=== PATIENT | female | born 1970 | race Caucasian/White ===

== ENCOUNTER 2017-06-26 06:30 | Day surgery (SDC) | payer SELFPAY ==
[~2017-06-26 06:30] MED LIST: Buffered Lidocaine 0.9% SYRIN* 5 ML/SYR SYRINGE INTRADERM ONE
[2017-06-26] MEDS ORDERED: ceFAZolin 2 GM PREMIX (*) 2 GM/50 ML BAG IVPB ONE (06:39)
[2017-06-26] MEDS ORDERED: Dexamethasone IV* 4 MG/ML 1 ML (4 MG) ONE (06:39)
[2017-06-26] MEDS ORDERED: Bacitracin OPHTH.OINT* 3.5 GM ONE (07:03)
[2017-06-26] MEDS ORDERED: Artificial Tear OPHTH.OINT* 3.5 GM ONE (07:03)
[2017-06-26] MEDS ORDERED: Bupivacaine 0.25% SDV* 30 ML ONE (07:03)
[2017-06-26] MEDS ORDERED: BSS OPTH.SOL* BTL ONE (07:03)
[2017-06-26] MEDS ORDERED: Lidocaine 1% MPF wEPI 200,000* 30 ML SDV ONE (07:04)
[2017-06-26] MEDS ORDERED: Midazolam* 1 MG/ML 2 ML VIAL (2 MG) ONE (07:44)
[2017-06-26] MEDS ORDERED: fentaNYL* 50 MCG/ML 2 ML VIAL (100 MCG VIAL) ONE (07:44)
[2017-06-26] MEDS ORDERED: Propofol* 10 MG/ML 20 ML BTL IV PUSH ONE (08:00)
[2017-06-26] MEDS ORDERED: Naloxone* 0.4 MG/ML 1 ML VIAL IV PRN (08:17)
[2017-06-26] MEDS ORDERED: Ondansetron INJ* 2 MG/ML VIAL IV PRN (08:17)
[2017-06-26 09:31] VITALS: BP 111/83
--- NOTE | 2017-06-28 07:21 | OP ---
CC: Dr. Perez * DATE OF OPERATION: 06/26/17 - [facility] DATE OF : 66 SURGEON: Kelton Frias MD, DMD EMOTIONAL DISABILITIES TEACHER: César Perez MD ANESTHESIOLOGIST: Aminah Kong MD PRE-OP DIAGNOSIS: Desire for bilateral lower lid blepharoplasty. POST-OP DIAGNOSIS: Desire for bilateral lower lid blepharoplasty. OPERATIVE PROCEDURE: Bilateral lower lid blepharoplasty. INDICATIONS FOR PROCEDURE: The patient is a 46-year-old female who has had a desire for cosmetic improvement of lower eyelid region. I discussed with her the full range of treatment options, alternatives, advantages, and disadvantages of each, and potential risks and complications in detail, and she indicates she understands and wishes to proceed. DESCRIPTION OF PROCEDURE: The patient was brought to the operating room suite and placed in the semi-supine position and prepped and draped in the standard fashion for facial cosmetic surgical procedure. [place] protocol time-out procedure was completed. Fine-tip marking pen was used to delineate the area of bilateral lower blepharoplasty incisions. 1% lidocaine with 1:200,000 epinephrine was then infiltrated into the subcutaneous plane of lower eyelid regions bilaterally. Attention was then directed to the right side. Pinch technique was used to excise the thin rim of skin at the incision site and an incision was made down to and through orbicularis at the lateral crease with extension. Incision through the orbicularis with elevation of skin muscle flap was then completed. Identification of redundant fat was made and the septum was carefully opened medially, centrally, and laterally where redundant fat was teased free with Q-tips, cauterized at the base then excised. Skin was re-draped and a small triangle of skin was removed laterally. An anchoring stitch from the periosteum to orbicularis was placed laterally to allow for completely tension free closure and skin closure was then accomplished in a running and interrupted fashion with 6-0 nylon suture. The identical procedure was then performed on the left side. Excellent contours were deemed to be achieved. The patient's vision in the OS and OD was normal and she was taken to the postanesthesia care unit, alert, awake, stable, and comfortable. Lacri-Lube ointment was placed on the incision sites before leaving the operating room. All sponge and sharps counts were correct. Blood loss was negligible and certainly less than 5 cc. [id number]/[facility] #: [id number] [facility]
== END 2017-06-26 09:47 | disposition home or self-care (01) ==
LOC: OREAST 06:30
PROVIDERS: ATTEND Oral & Maxillofacial Surgery
DX: Z01.818 Encounter for other preprocedural examination (principal); Z41.1 Encounter for cosmetic surgery; G47.33 Obstructive sleep apnea (adult) (pediatric); J45.909 Unspecified asthma, uncomplicated; E78.00 Pure hypercholesterolemia, unspecified; F41.9 Anxiety disorder, unspecified; F32.9 Major depressive disorder, single episode, unspecified; Z23 Encounter for immunization
CPT/HCPCS: 81025; 88300; A9270-GY; J0690; J1100; J2001; J2250; J2704; J3010